=== PATIENT | female | born 1990 | race Caucasian/White ===

== ENCOUNTER 2019-02-23 12:39 | Emergency (ER) | payer OTHER ==
[2019-02-23 13:28] LABS: ADD MAN DIFF? NO
[2019-02-23 13:29] LABS: BASOPHILS % 0.4 % (0.0-2.0); EOSINOPHILS # 0.1 10^3/ul (0.0-0.5); EOSINOPHILS % 0.8 % (0.0-7.0); HEMATOCRIT 41.7 % (37.0-47.0); HEMOGLOBIN 13.5 g/dl (12.0-16.0); LYMPHOCYTES # 2.8 10^3/ul (0.8-2.9); LYMPHOCYTES % 27.3 % (15.0-51.0); MEAN CORPUSCULAR HEMOGLOBIN 27.4 pg (29.0-33.0); MEAN CORPUSCULAR HGB CONC 32.4 g/dl (32.0-37.0); MEAN CORPUSCULAR VOLUME 84.8 fl (82.0-101.0); MEAN PLATELET VOLUME 9.2 fl (7.4-10.4); MONOCYTE # 0.8 10^3/ul (0.3-0.9); MONOCYTES % 7.4 % (0.0-11.0); NEUTROPHIL # 6.5 10^3/ul (1.6-7.5); NEUTROPHILS % 63.5 % (39.0-77.0); PLATELET COUNT 353 10^3/UL (140-415); RED BLOOD COUNT 4.92 10^6/ul (4.20-5.40); RED CELL DISTRIBUTION WIDTH 13.6 % (11.5-14.5)
[2019-02-23 13:29] LABS: WHITE BLOOD COUNT 10.3 10^3/ul (4.8-10.8)
[2019-02-23 13:49] LABS: ALANINE AMINOTRANSFERASE 29 IU/L (13-69); ALBUMIN 4.7 g/dl (3.3-4.9); ALBUMIN/GLOBULIN RATIO 1.38; ALKALINE PHOSPHATASE 116 IU/L (42-121); ANION GAP 11 (5-13); ASPARTATE AMINO TRANSFERASE 20 IU/L (15-46); BILIRUBIN,INDIRECT 0.3 mg/dl (0-1.1); BILIRUBIN,TOTAL 0.3 mg/dl (0.2-1.3); BLOOD UREA NITROGEN 5 mg/dl (7-20); CALCIUM 9.7 mg/dl (8.4-10.2); CARBON DIOXIDE 25 mmol/L (21-31); CHLORIDE 106 mmol/L (97-110); CREATININE 0.58 mg/dl (0.44-1.00); Estimated GFR > 60 mL/min (>60); GLUCOSE 82 mg/dl (70-220); LIPASE 99 U/L (23-300); POTASSIUM 4.4 mmol/L (3.5-5.1); SODIUM 142 mmol/L (135-144); TOTAL PROTEIN 8.1 g/dl (6.1-8.1)
[2019-02-23] MEDS: SOD CHLORIDE 0.9% 1,000 ML IV (14:15)
[2019-02-23] MEDS: ONDANSETRON 4 MG INJ IV (14:15)
[2019-02-23] MEDS: morphine 4 MG/ML VIAL IV (14:15)
[2019-02-23 14:29] LABS: ADD UMIC YES; UR ASCORBIC ACID NEGATIVE (NEGATIVE); UR BACTERIA FEW /HPF (NONE SEEN); UR BILIRUBIN (Dip) NEGATIVE (NEGATIVE); UR BLOOD (Dip) 1+ mg/dL (NEGATIVE); UR CLARITY CLOUDY (CLEAR); UR COLOR YELLOW (YELLOW); UR GLUCOSE (Dip) NEGATIVE (NEGATIVE); UR KETONES (Dip) NEGATIVE (NEGATIVE); UR LEUKOCYTE ESTERASE (Dip) 3+ Leu/ul (NEGATIVE); UR MUCUS FEW /HPF (NONE SEEN); UR NITRITE (Dip) NEGATIVE (NEGATIVE); UR RBC 4 /HPF (0-5); UR SQUAMOUS EPITHELIAL CELL FEW /HPF (FEW); UR TOTAL PROTEIN (Dip) NEGATIVE (NEGATIVE); UR UROBILINOGEN (Dip) NEGATIVE (NEGATIVE); UR WBC 30 /HPF (0-5)
[2019-02-23] MEDS: SOD CHLORIDE 0.9% 100 ML (14:59)
[2019-02-23] MEDS: IOHEXOL 300MG/ML 150 ML BTL (15:00)
[2019-02-23] MEDS: CEFTRIAXONE 1 GM/50 ML (PMX) 50 ML IVPB (15:53)
== END 2019-02-23 16:26 | disposition home or self-care (01) ==
LOC: FTE 16:26
DX: N39.0 Urinary tract infection, site not specified (principal)
CPT/HCPCS: 36415; 74177; 76830; 76856; 80053; 81001; 81025; 83690; 85025; 87086; 96361; 96365; 96375; 99285-25

== ENCOUNTER 2019-03-18 16:59 | Emergency (ER) | payer OTHER ==
[2019-03-18] MEDS: SOD CHLORIDE 0.9% 1,000 ML IV (17:41)
[2019-03-18] MEDS: ACETAMINOPHEN 325 MG TAB PO (17:41)
[2019-03-18] MEDS: ONDANSETRON 4 MG INJ IV (17:41)
[2019-03-18] MEDS: DIPHENHYDRAMINE 50 MG INJ IV (17:41)
[2019-03-18 17:55] LABS: ADD MAN DIFF? NO; BASOPHILS % 0.4 % (0.0-2.0); EOSINOPHILS # 0.1 10^3/ul (0.0-0.5); EOSINOPHILS % 1.4 % (0.0-7.0); HEMATOCRIT 39.8 % (37.0-47.0); HEMOGLOBIN 12.7 g/dl (12.0-16.0); LYMPHOCYTES # 3.3 10^3/ul (0.8-2.9); LYMPHOCYTES % 34.2 % (15.0-51.0); MEAN CORPUSCULAR HEMOGLOBIN 27.6 pg (29.0-33.0); MEAN CORPUSCULAR HGB CONC 31.9 g/dl (32.0-37.0); MEAN CORPUSCULAR VOLUME 86.5 fl (82.0-101.0); MEAN PLATELET VOLUME 9.8 fl (7.4-10.4); MONOCYTE # 0.8 10^3/ul (0.3-0.9); MONOCYTES % 8.4 % (0.0-11.0); NEUTROPHIL # 5.3 10^3/ul (1.6-7.5); NEUTROPHILS % 55.1 % (39.0-77.0); PLATELET COUNT 312 10^3/UL (140-415); RED CELL DISTRIBUTION WIDTH 13.3 % (11.5-14.5)
[2019-03-18 17:55] LABS: WHITE BLOOD COUNT 9.7 10^3/ul (4.8-10.8)
[2019-03-18 18:00] LABS: ADD UMIC YES; UR ASCORBIC ACID NEGATIVE (NEGATIVE); UR BILIRUBIN (Dip) NEGATIVE (NEGATIVE); UR BLOOD (Dip) 1+ mg/dL (NEGATIVE); UR CLARITY SLIGHTLY CLOUDY (CLEAR); UR COLOR YELLOW (YELLOW); UR GLUCOSE (Dip) NEGATIVE (NEGATIVE); UR KETONES (Dip) NEGATIVE (NEGATIVE); UR LEUKOCYTE ESTERASE (Dip) NEGATIVE Leu/ul (NEGATIVE); UR MUCUS FEW /HPF (NONE SEEN); UR NITRITE (Dip) NEGATIVE (NEGATIVE); UR RBC 1 /HPF (0-5); UR SPECIFIC GRAVITY (Dip) 1.028 (1.003-1.030); UR SQUAMOUS EPITHELIAL CELL FEW /HPF (FEW); UR TOTAL PROTEIN (Dip) 1+ mg/dl (NEGATIVE); UR UROBILINOGEN (Dip) NEGATIVE (NEGATIVE); UR WBC 1 /HPF (0-5)
[2019-03-18 18:15] LABS: INR 1.01; PARTIAL THROMBOPLASTIN TIME 27.4 Sec (23.0-35.0); PROTIME 13.4 Sec (11.9-14.9)
[2019-03-18 18:21] LABS: ANION GAP 9 (5-13); BLOOD UREA NITROGEN 9 mg/dl (7-20); CALCIUM 9.3 mg/dl (8.4-10.2); CARBON DIOXIDE 25 mmol/L (21-31); CHLORIDE 103 mmol/L (97-110); CREATININE 0.46 mg/dl (0.44-1.00); Estimated GFR > 60 mL/min (>60); GLUCOSE 100 mg/dl (70-220); POTASSIUM 4.1 mmol/L (3.5-5.1); SODIUM 137 mmol/L (135-144)
== END 2019-03-18 19:00 | disposition home or self-care (01) ==
LOC: FTE 16:59
DX: R51 Headache (principal)
CPT/HCPCS: 36415; 80048; 81001; 81025; 85025; 85610; 85730; 96361; 96374; 96375; 99284-25